=== PATIENT | female | born 1995 | race African-American/Black ===

== ENCOUNTER 2025-07-22 05:24 | Emergency (ER) | payer OTHER, MEDICAID ==
[~2025-07-22] VITALS: Ht 157.5 cm; Wt 100.0 kg
[2025-07-22 05:26] VITALS: O2SAT 100
[2025-07-22] MEDS: ACETAMINOPHEN 325MG TABLET PO ONE (06:24)
[2025-07-22] MEDS: MORPHINE SULFATE 4 MG/ML INJ (FOR IV/IM USE) IV ONE ×2 (06:24→06:52)
[2025-07-22 06:32] LABS: BASOPHILS % 0.2 % (0.0-2.0); EOSINOPHILS % 1.3 % (0.0-5.0); HEMATOCRIT. 36.3 % (36.0-48.0); HEMOGLOBIN. 12.4 g/dL (12.0-16.0); LYMPHOCYTES % 17.1 % (20.0-50.0); MEAN PLATELET VOLUME 7.6 fl (7.4-10.4); MONOCYTES % 5.3 % (2.0-8.0); NEUTROPHILS % 76.1 % (40.0-76.0); PLATELET 368 x1000/uL (130-400); RED BLOOD CELL COUNT 4.22 mill/uL (4.2-5.4); RED CELL DISTRIBUTION WIDTH 14.0 % (11.6-14.6)
[2025-07-22 06:52] LABS: CREATININE 0.7 mg/dL (0.6-1.0)
[2025-07-22 06:53] LABS: UREA NITROGEN BLOOD 8 mg/dL (9-23)
[2025-07-22 07:11] LABS: HCG SCREEN NEGATIVE
[2025-07-22] MEDS ORDERED: FENTANYL CITRATE/PF 50MCG/ML 2ML VIAL IV ONE (07:30)
[2025-07-22 08:06] VITALS: TEMP 36.8; O2SAT 97
[2025-07-22 08:21] VITALS: BP 148/77; PULSE 86; RESP 18
[2025-07-22] MEDS: FENTANYL CITRATE/PF 50MCG/ML 2ML VIAL IV NR (08:21)
== END 2025-07-22 09:15 | disposition short-term general hospital (02) ==
LOC: ER 05:24 → CANBEDREQ 08:02 → ER 09:15
DX: M79.604 Pain in right leg (principal); S32.401A Unspecified fracture of right acetabulum, initial encounter for closed fracture; J45.909 Unspecified asthma, uncomplicated; V49.9XXA Car occupant (driver) (passenger) injured in unspecified traffic accident, initial encounter; Y92.410 Unspecified street and highway as the place of occurrence of the external cause; Y93.89 Activity, other specified; Y99.8 Other external cause status
CPT/HCPCS: 99285; 74176; 96374; 96375; 80048; 84703; 85025; 36415; 73501; 73551; J3010; J2270